=== PATIENT | female | born 1965 | race Caucasian/White ===

== ENCOUNTER 2018-04-10 12:38 | Emergency (ER) | payer OTHER ==
[2018-04-10] MEDS ORDERED: Norflex 60 MG/2 ML IM ONE (13:13)
[2018-04-10] MEDS ORDERED: TORAdol 30 mg Injection IM ONE (13:13)
--- NOTE | 2018-04-10 13:33 | XRAY ---
Indication: Low back pain after lifting. Comparison: None 3 views of the lumbar spine demonstrates minimal dextroscoliosis centered at L2 and moderate L4-L5 degenerative disc disease as evidenced by disc space narrowing and endplate sclerosis/spurring. No other bony, articular, or soft tissue abnormalities.
[2018-04-10] MEDS ORDERED: TORAdol 30 mg Injection ONE (13:40)
[2018-04-10] MEDS ORDERED: Norflex 60 MG/2 ML ONE (13:40)
[2018-04-10 13:51] LABS: Appearance SLIGHTLY CLOUDY (CLEAR); Bilirubin NEGATIVE (NEGATIVE); Blood MODERATE Ery/ul (0-5); Glucose NEGATIVE (NEGATIVE); Ketones NEGATIVE (NEGATIVE); Leukocyte Esterase NEGATIVE (NEGATIVE); Nitrite NEGATIVE (NEGATIVE); Protein,Urine Dip NEGATIVE (Negative); Specific Gravity 1.023 (1.005-1.025); Urobilinogen NEGATIVE mg/dL (0-1)
--- NOTE | 2018-04-10 13:51 | ERPHSYRPT ---
- History of Present Illness Time Seen by Provider: 04/10/18 12:50 Source: patient Exam Limitations: clinical condition Patient Subjective Stated Complaint: Pt states "I twisted wrong at work and now my back hurts." Triage Nursing Assessment: Pt alert and oriented X 3, skin pwd. Pt ambulates with an upright steady gait. PT speaks in clear full sentences. No apparent respiratory distress. no bruising or swelling noted. Physician History: PATIENT WITH A HISTORY OF CHRONIC LOW BACK PAIN, DEGENERATIVE DISC DISEASE, POSTOPERATIVE LUMBAR DISECTOMY 2013, COMPLAINS OF INCREASING LOWER BACK PAIN AFTER LIFTING AT WORK. HAS CHRONIC LOW BACK PAIN RADIATES TO BOTH HIPS. DENIES LOSS OF BOWEL OR BLADDER FUNCTIONS, NUMBNESS, TINGLING OR WEAKNESS IN EXTREMITIES. ALSO STATES SHE IS OUT OF HER PRESCRIPTION MEDICATION FOR BLOOD PRESSURE. Timing/Duration: yesterday Method of Injury: bending Quality: sharp, stabbing Back Pain Location: lumbar spine Back Pain Radiation: buttocks Severity of Pain-Max: moderate Severity of Pain-Current: moderate Modifying Factors: Improves With: movement Associated Symptoms: lower back pain Previous symptoms: same symptoms as today Allergies/Adverse Reactions: No Known Drug Allergies Allergy (Unverified 04/10/18 12:53) Home Medications: Duloxetine HCl [Cymbalta] 60 mg PO BID 04/10/18 [History] Lisinopril [Zestril] 20 mg PO DAILY 04/10/18 [History] Hx Tetanus, Diphtheria Vaccination/Date Given: Yes Hx Influenza Vaccination/Date Given: No Hx Pneumococcal Vaccination/Date Given: No Immunizations Up to Date: Yes - Review of Systems Constitutional: No Fever, No Chills Eyes: No Symptoms Ears, Nose, & Throat: No Symptoms Respiratory: No Symptoms, No Cough, No Dyspnea Cardiac: No Symptoms, No Chest Pain, No Edema, No Syncope Abdominal/Gastrointestinal: No Symptoms, No Abdominal Pain, No Nausea, No Vomiting, No Diarrhea Genitourinary Symptoms: No Symptoms, No Dysuria Musculoskeletal: Injury, No Back Pain, No Neck Pain Skin: No Rash Neurological: No Dizziness, No Focal Weakness, No Sensory Changes Psychological: No Symptoms Endocrine: No Symptoms All Other Systems: Reviewed and Negative - Past Medical History Pertinent Past Medical History: Yes Neurological History: No Pertinent History ENT History: No Pertinent History Cardiac History: Hypertension Respiratory History: No Pertinent History Endocrine Medical History: No Pertinent History Musculoskeletal History: No Pertinent History GI Medical History: No Pertinent History History: No Pertinent History Psycho-Social History: Anxiety Female Reproductive Disorders: No Pertinent History - Past Surgical History Past Surgical History: Yes Other Surgical History: hysterecmy. back. tubal. c section X 2 - Social History Smoking Status: Never smoker Exposure to second hand smoke: No Drug Use: none Patient Lives Alone: No - Female History Hx Last Menstrual Period: 2007 Hx Now: No - Nursing Vital Signs Nursing Vital Signs: Initial Vital Signs Temperature 99.2 F 04/10/18 12:42 Pulse Rate 74 04/10/18 12:42 Respiratory Rate 18 04/10/18 12:42 Blood Pressure 174/97 04/10/18 12:42 O2 Sat by Pulse Oximetry 100 04/10/18 12:42 Pain Scale Pain Intensity 2 - Physical Exam General Appearance: no apparent distress, alert Neck Exam: normal inspection, non-tender, supple, full range of motion, No meningismus, No midline tenderness Respiratory Exam: normal breath sounds, lungs clear, No respiratory distress Cardiovascular Exam: regular rate/rhythm, normal heart sounds Back Exam: vertebral tenderness (L-1 TO L-5), decreased range of motion, point tenderness Peripheral Pulses: carotid (R): 2+, carotid (L): 2+, femoral (R): 2+, femoral (L ): 2+, dorsalis-pedis (R): 2+, dorsalis-pedis (L): 2+ Neurologic Exam: alert, oriented x 3 Skin Exam: normal color SpO2 Interpretation: normal SpO2: 98 Oxygen Delivery: Room Air - Radiology Exams L-Spine X-ray Interpretation: Discussed w/ radiologist (MINIMAL DEXTROSCOLIOSIS, MODERATE L4-L5 DEGENERATIVE DISC DZ EVIDENCD BY DISC SPACE NARROWING AND ENDPLATE SCLEROSIS/SPURRING) Ordered Tests: Active Orders 24 hr Category Date Time Status LUMBAR LIMITED (2 OR 3 VIEWS) Stat Exams 04/10/18 13:24 Completed UA W/RFX UR CULTURE Stat Lab 04/10/18 13:37 Ordered Medication Summary Discontinued Medications Generic Name Dose Route Start Last Admin Trade Name Freq PRN Reason Stop Dose Admin Ketorolac Tromethamine 60 mg 04/10/18 13:13 04/10/18 13:41 Toradol 30 Mg Injection IM 04/10/18 13:14 60 mg STAT ONE Administration Ketorolac Tromethamine Confirm 04/10/18 13:40 Toradol 30 Mg Injection Administered 04/10/18 13:41 Dose 60 mg .ROUTE .STK-MED ONE Orphenadrine Citrate 60 mg 04/10/18 13:13 04/10/18 13:41 Norflex 60 Mg/2 Ml IM 04/10/18 13:14 60 mg STAT ONE Administration Orphenadrine Citrate Confirm 04/10/18 13:40 Norflex 60 Mg/2 Ml Administered 04/10/18 13:41 Dose 60 mg .ROUTE .STK-MED ONE - Progress Progress: improved, pain not gone completely Progress Note: 04/10/18 13:53 ADMINISTERED TORADOL 60MG IM, NORFLEX 100MG IM Counseled pt/family regarding: need for follow-up, rad results - Departure Time of Disposition: 14:03 Departure Disposition: Home Clinical Impression: CHRONIC LOW BACK PAIN, ACUTE LUMBAR STRAIN Condition: Stable Critical Care Time: No Additional Instructions: TORADOL 10MG EVERY 6 HOURS FOR PAIN NEEDED. NORFLEX 100MG EVERY 12 HOURS FOR MUSCLE SPASMS NEEDED. CONTINUE CYMBALTA 60MG TWICE DAILY AND LISINOPRIL 20MG DAILY. OBTAIN A PRIMARY CARE PROVIDER FOR FOLLOWUP. Prescriptions: Ketorolac Tromethamine [Toradol] 10 mg PO Q6H PRN PRN #20 tablet PRN Reason: Pain Duloxetine HCl 30 mg [Cymbalta 30 MG Capsule] 60 mg PO BID #30 cap Lisinopril 20 mg [Zestril 20 MG] 20 mg PO DAILY #30 tablet Orphenadrine Citrate 100 mg [Norflex 100 MG Tablet] 100 mg PO BID #10 tab
[2018-04-10 14:09] VITALS: BP 168/90; PULSE 80; O2SAT 97
== END 2018-04-10 14:22 | disposition home or self-care (01) ==
LOC: ED 12:38
DX: S39.012A Strain of muscle, fascia and tendon of lower back, initial encounter (principal); M54.5 Low back pain; X50.1XXA Overexertion from prolonged static or awkward postures, initial encounter; Y93.89 Activity, other specified; Y92.512 Supermarket, store or market as the place of occurrence of the external cause; Y99.0 Civilian activity done for income or pay
CPT/HCPCS: 72100; 81001; 96372; 99284; J1885; J2360